=== PATIENT | male | born 1985 | race African-American/Black ===

== ENCOUNTER 2016-09-20 00:32 | Emergency (ER) | payer OTHER ==
[~2016-09-20] VITALS: Ht 182.9 cm; Wt 147.4 kg
[2016-09-20 01:17] VITALS: BP 144/79
--- NOTE | 2016-09-20 01:23 | ED ANKLE/FOOT INJURY COMPLAINT ---
History of Present Illness General Chief Complaint: Foot or Ankle Injury Stated Complaint: ?INFECTION TO RT GREAT TOE S/P INGROWN TOE NAIL Source: patient Exam Limitations: no limitations Vital Signs & Intake/Output Vital Signs & Intake/Output Vital Signs Date Time Temp Pulse Resp B/P B/P Pulse O2 O2 Flow FiO2 Mean Ox Delivery Rate 09/20 0117 98.1 80 16 144/79 98 Room Air Allergies Coded Allergies: iodine (Mild, LIP, FACIAL SWELLING 09/20/16) Reconcile Medications Glyburide 5 MG TABLET 1 TAB PO DAILY DIABETES (Reported) Triage Note: 31YO MALE TO RM 2 FROM TRIAGE W/CO R GREAT TOE ?INFECTION. STTES HE "PULLED HANGNAIL ON TUES AND TODAY REDNESS,PAIN PRESENT" HX DIABETES Triage Nurses Notes Reviewed? yes Occurred: 3 days Duration: day(s):, constant, continues in ED Timing: recent history Severity: mild Pain/Injury Location: Right: 1st toe. Method of Injury: pulled hangnail Modifying Factors: Worsens With: jarring. Associated Symptoms: GCS 15 since, stiffness HPI: 3 days prior to admission patient pulled hangnail from right great toe medial aspect presents with continued pain and stiffness. He denies fever chills nausea vomiting diarrhea abdominal pain chest pain shortness breath headache dysuria rash bleeding. Past History Medical History Any Pertinent Medical History? see below for history Endocrine: diabetes Surgical History Surgical History: non-contributory Family History Hx Contributory? No Review of Systems Review of Systems Constitutional: Reports: no symptoms. EENTM: Reports: no symptoms. Respiratory: Reports: no symptoms. Cardiovascular: Reports: no symptoms. GI: Reports: no symptoms. Genitourinary: Reports: no symptoms. Musculoskeletal: Reports: no symptoms. Skin: Reports: see HPI. Neurological/Psychological: Reports: no symptoms. Hematologic/Endocrine: Reports: no symptoms. Immunologic/Allergic: Reports: no symptoms. All Other Systems: Reviewed and Negative Physical Exam Physical Exam General Appearance: well developed/nourished, alert, awake, anxious, mild distress Head: atraumatic, normal appearance Eyes: Bilateral: normal appearance, PERRL, EOMI. Ears, Nose, Throat: normal pharynx, normal ENT inspection, hearing grossly normal Neck: normal inspection, supple, full range of motion, no midline tenderness Cardiovascular/Respiratory: normal breath sounds, normal peripheral pulses, regular rate/rhythm, no respiratory distress Back: normal inspection Leg/Knee/Thigh Left: normal range of motion, normal inspection Leg/Knee/Thigh Right: normal range of motion, normal inspection Ankle Left: normal inspection, normal range of motion Ankle Right: normal inspection, normal range of motion Foot Left: normal inspection, normal range of motion Foot Right: normal range of motion, tenderness, soft tissue tenderness, cornified skin tender without discharge medial aspect right great toe Reflexes: 2+: knee (R), knee (L). Neuro/Vascular: normal motor function, normal sensation Tendon: normal tendon function Psychiatric: awake, alert, oriented x 3 Skin: intact, normal color, warm/dry Progress Differential Diagnosis: paronychia, diabetic foot infection Plan of Care: Current Medications Sig/Carlos Start time Last Medication Dose Stop Time Status Admin Cephalexin 500 MG ONCE ONE 09/20 199 UNVr (Keflex) 09/20 200 Departure Departure Time of Disposition: 199 Disposition: HOME OR SELF CARE Condition: Stable Clinical Impression Primary Impression: Paronychia of great toe of right foot Referrals: PATIENT HAS NO PRIMARY CARE DR (PCP/Family) Departure Forms: Customer Survey General Discharge Information Prescriptions: Current Visit Scripts Cephalexin (Keflex) 1 CAP PO TID #30 CAP Ibuprofen 1 TAB PO Q6PRN PRN pain #50 TAB
[2016-09-20] MEDS ORDERED: GLYBURIDE5 M1 PO (01:48)
[2016-09-20] MEDS ORDERED: IBUPROFEN800 M1 PO (02:17)
[2016-09-20] MEDS ORDERED: KEFLEX500 M1 PO (02:17)
== END 2016-09-20 02:27 ==
LOC: ERH 00:32
DX: L03.031 Cellulitis of right toe (principal)

== ENCOUNTER 2017-10-01 17:40 | Emergency (ER) | payer OTHER ==
[~2017-10-01] VITALS: Ht 185.4 cm; Wt 140.6 kg
[~2017-10-01 17:40] MED LIST: GLYBURIDE5 M1 PO; IBUPROFEN800 M1 PO; KEFLEX500 M1 PO
[2017-10-01 19:34] VITALS: BP 122/81
[2017-10-01 19:48] LABS: ABSOLUTE BASOPHIL COUNT 0 /CUMM (0.0-0.2); ABSOLUTE EOSINOPHIL COUNT 0.2 /CUMM (0.0-0.7); ABSOLUTE GRANULOCYTE CT 3.8 /CUMM (1.4-6.5); ABSOLUTE LYMPH COUNT 2.2 /CUMM (1.2-3.4); ABSOLUTE MONOCYTE COUNT 0.4 /CUMM (0.10-0.60); BASOPHIL % 0.4 % (0.0-2.0); EOSINOPHIL % 2.6 % (0-5); GRANULOCYTE % 57.1 % (42.2-75.2); MEAN CORPUSCULAR HGB 29.2 PG (27.0-31.0); MEAN CORPUSCULAR HGB CONC 33.3 G/DL (33.0-37.0); MEAN CORPUSCULAR VOLUME 87.6 FL (80.0-94.0); MEAN PLATELET VOLUME 7.7 FL (7.4-10.4); PLATELET COUNT 290 /CUMM (130-400); RBC DISTRIBUTION WIDTH 13.1 % (11.5-14.5); RED BLOOD CELL CT 5.25 /CUMM (4.70-6.10); WHITE BLOOD CELL COUNT 6.6 /CUMM (4.8-10.8)
--- NOTE | 2017-10-01 20:08 | ED GENERAL ADULT ---
History of Present Illness General Chief Complaint: General Adult Stated Complaint: HX DIABETES, LEFT HAND SWELLING TINGLING Source: patient Exam Limitations: no limitations Vital Signs & Intake/Output Vital Signs & Intake/Output Vital Signs Date Time Temp Pulse Resp B/P B/P Pulse O2 O2 Flow FiO2 Mean Ox Delivery Rate 10/01 1940 Room Air 10/01 1933 77 20 122/81 99 Room Air 10/01 1801 97.2 66 18 130/76 98 Room Air Allergies Coded Allergies: shellfish derived (Intermediate, ANAPHYLAXIS 10/01/17) iodine (Mild, LIP, FACIAL SWELLING 09/20/16) Reconcile Medications Cephalexin (Keflex) 500 MG CAPSULE 1 CAP PO TID foot infection Glyburide 5 MG TABLET 1 TAB PO DAILY DIABETES (Reported) Glyburide 5 MG TABLET 1 TAB PO ONCE DAILY DM Ibuprofen 800 MG TABLET 1 TAB PO TID PRN PAIN Ibuprofen 800 MG TABLET 1 TAB PO Q6PRN PRN pain Pioglitazone HCl (Actos) 15 MG TABLET 1 TAB PO DAILY DM Triage Note: PT TO TRIAGE C/O L HAND SWELLING AND TINGLING SINCE WAKING UP THIS MORNING. DENIES INJURY/FALL/TRAUMA. PT IS NON COMPLIANT DIABETIC. BS IN TRIAGE 243. Triage Nurses Notes Reviewed? yes Onset: Abrupt Duration: day(s): (3), constant, continues in ED Timing: single episode today Injury Environment: home Severity: mild, moderate No Modifying Factors: none HPI: 32-year-old male with a history of [id number] diabetes was reevaluation of numbness and tingling in his left fourth fifth digits. Patient states he's been no dizziness over the past few days. He states that there is some pain that radiates from those left fourth and fifth digits into his wrist and forearm. He states that symptoms started after he did a lot of heavy lifting and movement. He has had similar symptoms in the past. He also reports that he has a history of diabetes and has not been taking his medicine. His sugar has been in the 200s. He denies any direct trauma no chest pain shortness of breath no other numbness or tingling or weakness. No swelling redness or fever. Patient will be restarted on his diabetes medications. He was also given ibuprofen for treatment of possible cubital tunnel syndrome. Advised him to wear an elbow wrap/brace avoid repetitive heavy lifting and bending. Follow- up with primary care doctor. Limit sugar in cars in your diet. Discussed return precautions patient agrees the plan. (Osiel Ellsworth) Past History Travel History Traveled to [place] past 21 day No Medical History Any Pertinent Medical History? see below for history Neurological: NONE EENT: NONE Cardiovascular: NONE Respiratory: asthma Gastrointestinal: NONE Hepatic: NONE Renal: NONE Musculoskeletal: NONE Psychiatric: NONE Endocrine: diabetes Blood Disorders: NONE Surgical History Surgical History: non-contributory Psychosocial History What is your primary language Uzbek Tobacco Use: Never used ETOH Use: denies use Family History Hx Contributory? No (Osiel Ellsworth) Review of Systems Review of Systems Constitutional: Reports: no symptoms. EENTM: Reports: no symptoms. Respiratory: Reports: no symptoms. Cardiovascular: Reports: no symptoms. GI: Reports: no symptoms. Genitourinary: Reports: no symptoms. Musculoskeletal: Reports: no symptoms. Skin: Reports: no symptoms. Neurological/Psychological: Reports: numbness, paresthesia, tingling. Hematologic/Endocrine: Reports: no symptoms. Immunologic/Allergic: Reports: no symptoms. All Other Systems: Reviewed and Negative (Osiel Ellsworth) Physical Exam Physical Exam General Appearance: well developed/nourished, no apparent distress, alert, awake Head: atraumatic, normal appearance Eyes: Bilateral: normal appearance, PERRL, EOMI. Ears, Nose, Throat: hearing grossly normal Neck: normal inspection, supple, full range of motion Respiratory: normal breath sounds, chest non-tender, no respiratory distress, lungs clear Cardiovascular: regular rate/rhythm, normal peripheral pulses Peripheral Pulses: 2+ radial (R), 2+ radial (L) Back: normal inspection, normal range of motion Extremities: normal inspection, normal range of motion, no edema, neurovascular supply is intact to the bilateral upper extremities. Pain is produced in the left fourth and fifth digits with palpation of the ulnar nerve near the olecranon process. No bruising swelling or abrasions no erythema Neurologic/Psych: no motor/sensory deficits, awake, alert, oriented x 3, normal gait Skin: intact, normal color, warm/dry Core Measures ACS in differential dx? No CVA/TIA Diagnosis: No Sepsis Present: No Sepsis Focused Exam Completed? No (Osiel Ellsworth) Progress Differential Diagnoses I considered the following diagnoses in my evaluation of the patient: [Cubital tunnel syndrome, brachial plexus injury, neuropathy, uncontrolled diabetes, tendinitis] Plan of Care: Orders Procedure Date/time Status MAGNESIUM 10/02 1923 Complete COMPREHENSIVE METABOLIC PANEL 10/02 1923 Complete CBC WITHOUT DIFFERENTIAL 10/02 1923 Complete Laboratory Tests 10/01/171931: Anion Gap 12, Estimated GFR > 60, BUN/Creatinine Ratio 13.3, Glucose 310 H, Calcium 9.9, Magnesium 1.8, Total Bilirubin 0.7, AST 22, ALT 33, Alkaline Phosphatase 105, Total Protein 7.4, Albumin 4.6, Globulin 2.8, Albumin/Globulin Ratio 1.6, CBC w Diff NO MAN DIFF REQ, RBC 5.25, MCV 87.6, MCH 29.2, MCHC 33.3, RDW 13.1, MPV 7.7, Gran % 57.1, Lymphocytes % 33.7, Monocytes % 6.2, Eosinophils % 2.6, Basophils % 0.4, Absolute Granulocytes 3.8, Absolute Lymphocytes 2.2, Absolute Monocytes 0.4, Absolute Eosinophils 0.2, Absolute Basophils 0 Patient seen and evaluated. He has history of diabetes and stopped taking his medicine several weeks ago due to insurance issues. He also has numbness and tingling in his left fourth and fifth digits. It does get worse after movement. Basic blood work was obtained and shows a glucose of 310. Anion gap is normal. Remaining blood work is within normal limits. Patient be restarted on his glipizide and Initial ED EKG: none (Osiel Ellsworth) Departure Departure Disposition: HOME OR SELF CARE Condition: Stable Clinical Impression Primary Impression: Diabetes Qualifiers: Diabetes mellitus type: type 2 Diabetes mellitus intermediate school teacher insulin use: unspecified fci insulin use status Diabetes mellitus complication status: without complication Qualified Code: E11.9 - Type 2 diabetes mellitus without complications Secondary Impressions: Cubital tunnel syndrome Qualifiers: Laterality: left Qualified Code: G56.22 - Lesion of ulnar nerve, left upper limb Referrals: Yesy HAIDER,Maury Etienne MD,Regan Allen MD,Leonel Bender Patient Has No Primary Care Dr (PCP/Family) Additional Instructions: Continue to use ibuprofen 800 mg every 8 hours with food as needed for pain. Restart both diabetes mellitus as directed for course. Reduce her sugar and carbon take. Make a follow-up with her primary care doctor. Monitor symptoms return with any concerns. Departure Forms: Customer Survey General Discharge Information Prescriptions: Current Visit Scripts Glyburide 1 TAB PO ONCE DAILY #30 TAB Ibuprofen 1 TAB PO TID PRN PAIN #30 TAB Pioglitazone HCl (Actos) 1 TAB PO DAILY #30 TAB (Osiel Ellsworth) PA/[employer]ARD [employer]OCK DRILL OPERATOR Co-Sign Statement Statement: ED Attending supervision documentation- I saw and evaluated the patient. I have also reviewed all the pertinent lab results and diagnostic results. I agree with the findings and the plan of care as documented in the PA's/HARD R[employer] DRILL OPERATOR's documentation. x I have reviewed the ED Record and agree with the PA's/H[employer] R[employer] DRILL OPERATOR's documentation. [] Additions or exceptions (if any) to the PAs/HARD ROCK DRILL OPERATOR's note and plan are summarized below: [] (Tito HAIDER,Mendez) Critical Care Note Critical Care Note Critical Care Time: non-applicable (Osiel Ellsworth)
[2017-10-01] MEDS ORDERED: GLYBURIDE5 M1 PO (20:13)
[2017-10-01] MEDS ORDERED: IBUPROFEN800 M1 PO (20:13)
[2017-10-01] MEDS ORDERED: ACTOS15 M1 PO (20:14)
== END 2017-10-01 20:29 ==
LOC: ERH 17:40
PROVIDERS: Physician Assistant Medical
DX: E11.9 Type 2 diabetes mellitus without complications (principal)